=== PATIENT | male | born 1970 | race Caucasian/White ===

== ENCOUNTER → 2019-05-29 | Outpatient (CLI) | payer OTHER | END | disposition home or self-care (01) | DX: M75.121 Complete rotator cuff tear or rupture of right shoulder, not specified as traumatic (principal) ==

== ENCOUNTER 2023-07-22 06:58 | Day surgery (SDC) | payer OTHER ==
[2023-07-22 07:30] VITALS: RESP 16; TEMP 97.4
[2023-07-22] MEDS: LACTATED RINGERS 1,000 ML IV SCH (07:31)
[2023-07-22] MEDS ORDERED: PROPOFOL 10 MG/ML 20 ML VIAL IV ONE (08:01)
--- NOTE | 2023-07-22 08:14 | P.GSHP ---
History of Present Illness H&P Date: 07/22/23 Chief Complaint: screening colonoscopy is a 53-year-old male who presents today for screening colonoscopy. Patient denies a significant GI complaints. Past Medical History Past Medical History: Hyperlipidemia Additional Past Medical History / Comment(s): had some blood on tissue x2 over past few months seasonal allergies History of Any Multi-Drug Resistant Organisms: None Reported Past Surgical History: Orthopedic Surgery, Tonsillectomy Additional Past Surgical History / Comment(s): neck injections varisoce veins surgery margarito ,rotator cuff on lft, Past Anesthesia/Blood Transfusion Reactions: Previous Problems w/ Anesthesia Additional Past Anesthesia/Blood Transfusion Reaction / Comment(s): states did not wake up for 2 days because he had pneumonia when he was put under with tonsil surgery Smoking Status: Former smoker - Past Family History Mother Family Medical History: No Reported History Medications and Allergies Home Medications Medication Instructions Recorded Confirmed Type Loratadine-Pseudoeph 10-240 mg 1 each PO DAILY 11/20/15 07/22/23 History [Claritin-D 24 Hour] Atorvastatin [Lipitor] 10 mg PO HS 07/19/23 07/22/23 History Melatonin (Unk) 1 tab PO HS PRN 07/19/23 07/22/23 History Allergies Allergy/AdvReac Type Severity Reaction Status Date / Time erythromycin base Allergy Nausea & Verified 07/22/23 07:25 Vomiting & Diarrhea egg AdvReac Nausea Verified 07/22/23 07:25 Fish Containing Products AdvReac Nausea Verified 07/22/23 07:25 milk AdvReac Nausea Verified 07/22/23 07:25 Surgical - Exam Vital Signs Temp Pulse Resp BP Pulse Ox 97.4 F L 73 16 121/76 98 07/22/23 07:24 07/22/23 07:24 07/22/23 07:24 07/22/23 07:24 07/22/23 07:24 - General well developed, well nourished, no distress - Eyes PERRL - ENT normal pinna - Neck no masses - Respiratory normal expansion - Cardiovascular Rhythm: regular - Abdomen Abdomen: soft, non tender Assessment and Plan Plan: we'll perform screening colonoscopy
--- NOTE | 2023-07-22 08:16 | P.OP ---
Date of Procedure: 07/22/23 Preoperative Diagnosis: screening colonoscopy Postoperative Diagnosis: diverticulosis Procedure(s) Performed: colonoscopy Anesthesia: MAC Surgeon: Rocky Kovacs Pathology: none sent Condition: stable Disposition: PACU Description of Procedure: patient was placed on the endoscopy table in the lateral position. He received IV sedation. Digital rectal exam was performed. This revealed no abnormalities. The prostate was symmetrical without nodules. The flexible colonoscope was then placed patient anus and passed throughout the entire colon. The ileocecal valve was visualized. Cecum, ascending and transverse colon appeared normal. The descending and sigmoid colon had a few scattered diverticu la. Scope summer back the rectum and this appeared normal. Scope withdrawn for patient.
[2023-07-22 09:06] VITALS: BP 112/69; PULSE 62
== END 2023-07-22 09:01 | disposition home or self-care (01) ==
LOC: ORWHC2ENDO 06:58
PROVIDERS: ATTEND Surgery
DX: Z12.11 Encounter for screening for malignant neoplasm of colon (principal); K57.30 Diverticulosis of large intestine without perforation or abscess without bleeding; E78.5 Hyperlipidemia, unspecified; Z98.890 Other specified postprocedural states; Z90.89 Acquired absence of other organs; Z87.891 Personal history of nicotine dependence; Z79.899 Other long term (current) drug therapy; Z88.1 Allergy status to other antibiotic agents; Z91.012 Allergy to eggs; Z91.013 Allergy to seafood
CPT/HCPCS: 45378; J2704